=== PATIENT | male | born 1990 | race Caucasian/White ===

== ENCOUNTER 2020-06-01 22:25 | Emergency (ER) | payer SELFPAY ==
[~2020-06-01] VITALS: Ht 180.3 cm; Wt 127.0 kg
[2020-06-01] MEDS: IV NS 0.9% 1,000 ML BAG IV ONE (22:30)
[2020-06-01] MEDS: LORAZEPAM INJ 2 MG/ML VIAL IM ONE (22:30)
--- NOTE | 2020-06-01 22:30 | NUR ---
Pt bibfriends c/o being altered s/p taking a "dab". Pt aaox1 breating evenly and unlabored. pt placed on 2L for comfort. Pt skin warm, dry, and intact. Pt had one epidsode of emesis witnessed by staff. Pt attached to monitor and pox. Pt has 20g rt ac initiated, blood obtained and sent to lab. pt given blanket and call light within reach. will continue to monitor.
[2020-06-01] MEDS ORDERED: LORAZEPAM INJ 2 MG/ML VIAL ONE (22:35)
[2020-06-01] MEDS ORDERED: ONDANSETRON HCL/PF 4 MG/2 ML VIAL ONE (22:40)
[2020-06-01 23:02] LABS: BASOPHILS % (AUTO) 0.3 % (0.0-2.0); EOSINOPHILS % (AUTO) 0.7 % (0.0-6.0); HEMATOCRIT 48 % (39-51); HEMOGLOBIN 16.5 g/dL (13.5-17.5); LYMPHOCYTES # (AUTO) 5.8 /CMM (0.8-4.8); LYMPHOCYTES % (AUTO) 44.8 % (20.0-44.0); MEAN CORPUSCULAR HGB CONC 34 g/dl (31.0-36.0); MEAN CORPUSCULAR VOLUME 89 fL (80-96); MONOCYTES # (AUTO) 1.2 /CMM (0.1-1.30); MONOCYTES % (AUTO) 9.5 % (2.0-12.0); NEUTROPHILS # (AUTO) 5.8 /CMM (1.8-8.9); NEUTROPHILS % (AUTO) 44.7 % (43.0-81.0); PLATELET COUNT (AUTO) 364 /CMM (150-450); RED BLOOD CELL COUNT(AUTO) 5.37 MIL/uL (4.5-6.0)
--- NOTE | 2020-06-01 23:30 | NUR ---
pt unable to urinate, aware
[2020-06-02 00:36] LABS: CALCIUM, SERUM 8.6 mg/dL (8.5-10.1); CARBON DIOXIDE 20 mmol/L (21-32); CHLORIDE 101 mmol/L (98-107); CREATININE 1.3 mg/dL (0.6-1.3); GLUCOSE 131 mg/dL (74-106); SODIUM SERUM 140 mmol/L (136-145); UREA NITROGEN, BLOOD 11 mg/dL (7-18)
[2020-06-02 00:42] LABS: ALANINE AMINOTRANSFERASE 50 U/L (12-78); ALBUMIN 4.2 g/dL (3.4-5.0); ALCOHOL, BLOOD < 3 mg/dL (0-0); ALKALINE PHOSPHATASE 77 U/L (46-116); ASPARTATE AMINOTRANSFERASE 26 U/L (15-37); BILIRUBIN,DIRECT 0.1 mg/dL (0.0-0.2); BILIRUBIN,TOTAL 0.4 mg/dL (0.2-1.0)
--- NOTE | 2020-06-02 00:57 | NUR ---
urine sent to lab
[2020-06-02 01:01] LABS: BILIRUBIN,URINE Negative (NEGATIVE); COLOR,URINE AMBER (YELLOW); LEUKOCYTE ESTERASE ,URINE Negative (NEGATIVE); NITRITE, URINE Negative (NEGATIVE); PH,URINE 5.5 (5.0-8.0); PROTEIN,URINE Negative (NEGATIVE); UGLUCOSE Negative (NEGATIVE); UROBILINOGEN,URINE 0.2 EU/dL (0.2)
--- NOTE | 2020-06-02 01:30 | NUR ---
Patient discharged to home in stable condition. Written and verbal after care instructions given. Patient verbalizes understanding of instruction.IV removed. Catheter intact and site benign. Pressure and 4x4 applied to site. No bleeding noted. Pt ambulatory with a steady gait
[2020-06-02 01:36] LABS: BACTERIA,URINE Few /HPF (None Seen); RBC,URINE 0-2 /HPF (0-2); SQUAMOUS EPITHELIAL CELL,UR Few /HPF (None Seen)
[2020-06-02 01:37] VITALS: BP 120/82
[2020-06-02 01:37] LABS: MUCUS,URINE Few /LPF (None Seen)
== END 2020-06-02 01:30 | disposition home or self-care (01) ==
LOC: EDBD 22:26 → ER 22:26
DX: F12.929 Cannabis use, unspecified with intoxication, unspecified (principal); F41.0 Panic disorder [episodic paroxysmal anxiety]; R00.0 Tachycardia, unspecified; R11.10 Vomiting, unspecified
CPT/HCPCS: 36415; 80048; 80076; 80307; 80320; 81001; 84484; 85025; 93005; 96360; 96372; 99285; J2060; J7030; G0480; J2405

== ENCOUNTER 2020-06-04 00:20 | Emergency (ER) | payer SELFPAY ==
[~2020-06-04] VITALS: Ht 170.2 cm; Wt 90.7 kg
--- NOTE | 2020-06-04 00:25 | NUR ---
PT BIBSELF C/O SOB AND ANXIETY. PT STATES HE USED [facility] YESTERDAY AND CAUSED HIM TO FEEL ANXIOUS ALL DAY TODAY. PT STATES HE FEELS SOB, O2 SAT 100% ROOM AIR. PT AAOX4. VITAL SIGNS STABLE. RESPIRATIONS EVEN AND UNLABORED. NO ACUTE DISTRESS NOTED AT THIS TIME. PENDING ER BED AVAILABILITY
--- NOTE | 2020-06-04 03:00 | NUR ---
PT AMBULATORY TO ER BED 6. DR. JAY AT BEDSIDE FOR EVAL
[2020-06-04 03:37] VITALS: BP 138/86
--- NOTE | 2020-06-04 03:37 | NUR ---
Patient discharged to home in stable condition. Written and verbal after care instructions given. Patient verbalizes understanding of instruction.
== END 2020-06-04 03:38 | disposition home or self-care (01) ==
LOC: ER 00:23
DX: F41.0 Panic disorder [episodic paroxysmal anxiety] (principal)
CPT/HCPCS: 71045-TC